=== PATIENT | female | born 1980 | race Caucasian/White ===

== ENCOUNTER 2016-11-07 20:41 | Emergency (ER) | payer MEDICAID ==
[2016-11-07 21:38] LABS: BASOPHIL % 0.7 % (0-2); PLATELET COUNT 253 x10^3mcL (130-400); RED CELL DISTRIBUTION WIDTH 12.8 % (11.5-14.5)
[2016-11-07 21:44] LABS: CALCIUM 8.3 mg/dL (8.5-10.1); CARBON DIOXIDE 26.5 mmol/L (21-32); CHLORIDE SERUM 109 mmol/L (98-107); CREATININE SERUM 0.8 mg/dL (0.6-1.0); GFR1 > 60 mL/min; GLUCOSE SERUM 104 mg/dL (74-106); POTASSIUM SERUM 3.5 mmol/L (3.5-5.1); SODIUM SERUM 145 mmol/L (136-145)
[2016-11-07 21:48] LABS: ALBUMIN 3.6 g/dL (3.4-5.0); ALKALINE PHOSPHATASE 60 U/L (46-116); ALT/SGPT 27 U/L (14-59); AMYLASE 83 U/L (25-115); AST/SGOT 16 U/L (15-37); BILIRUBIN TOTAL 0.26 mg/dL (0.20-1.00); LIPASE 315 IU/L (73-393); TOTAL PROTEIN, SERUM 7.1 g/dL (6.4-8.2)
[2016-11-07 22:33] VITALS: BP 116/80
== END 2016-11-07 22:23 | disposition home or self-care (01) ==
LOC: ED 20:41
PROVIDERS: Emergency Medicine
DX: R10.11 Right upper quadrant pain (principal); R07.89 Other chest pain
CPT/HCPCS: 36415; 83880; J1885; J7030; Q0092

== ENCOUNTER 2017-07-04 21:54 | Emergency (ER) | payer OTHER ==
[~2017-07-04] VITALS: Ht 162.6 cm; Wt 65.8 kg
[2017-07-04 22:12] VITALS: Ht 162.6 cm; Wt 65.8 kg
[2017-07-04 23:19] VITALS: BP 127/97
== END 2017-07-04 23:19 | disposition home or self-care (01) ==
LOC: ED 21:54
DX: G43.909 Migraine, unspecified, not intractable, without status migrainosus (principal)
CPT/HCPCS: J0780; J1885

== ENCOUNTER 2017-10-30 20:35 | Emergency (ER) | payer OTHER ==
[~2017-10-30] VITALS: Ht 165.1 cm; Wt 65.9 kg
[2017-10-30 21:55] VITALS: Ht 165.1 cm; Wt 65.9 kg
[2017-10-31 00:50] LABS: BASOPHIL % 0.7 % (0-2); CARBON DIOXIDE 26.8 mmol/L (21-32); CHLORIDE SERUM 105 mmol/L (98-107); CREATININE SERUM 0.6 mg/dL (0.6-1.0); GFR1 > 60 mL/min; GLUCOSE SERUM 95 mg/dL (74-106); PLATELET COUNT 263 x10^3mcL (130-400); POTASSIUM SERUM 3.7 mmol/L (3.5-5.1); RED CELL DISTRIBUTION WIDTH 12.8 % (11.5-14.5); SODIUM SERUM 139 mmol/L (136-145)
[2017-10-31 00:53] LABS: ALBUMIN 3.6 g/dL (3.4-5.0); ALKALINE PHOSPHATASE 64 U/L (46-116); ALT/SGPT 22 U/L (14-59); AMYLASE 63 U/L (25-115); AST/SGOT 15 U/L (15-37); BILIRUBIN TOTAL 0.3 mg/dL (0.20-1.00); LIPASE 284 IU/L (73-393); TOTAL PROTEIN, SERUM 7.1 g/dL (6.4-8.2)
[2017-10-31 02:11] VITALS: BP 121/76
[2017-10-31 02:22] LABS: UA SPECIFIC GRAVITY 1.015 (1.005-1.035); microscopic required? YES; urine erythrocyte TRACE (NEGATIVE)
== END 2017-10-31 02:11 | disposition home or self-care (01) ==
LOC: ED 20:35
PROVIDERS: Specialist
DX: R10.12 Left upper quadrant pain (principal); N39.0 Urinary tract infection, site not specified
CPT/HCPCS: 83880; J1885; J2765; J3010; Q0092

== ENCOUNTER 2019-04-16 17:36 | Emergency (ER) | payer SELFPAY ==
[~2019-04-16] VITALS: Ht 165.1 cm; Wt 69.4 kg
[2019-04-16 17:39] VITALS: Ht 165.1 cm; Wt 69.4 kg
[2019-04-16 18:41] VITALS: BP 145/68
== END 2019-04-16 18:41 | disposition home or self-care (01) ==
LOC: ED 17:36
DX: J06.9 Acute upper respiratory infection, unspecified (principal); R07.89 Other chest pain; F17.210 Nicotine dependence, cigarettes, uncomplicated; R42 Dizziness and giddiness; M54.6 Pain in thoracic spine
CPT/HCPCS: Q0092